=== PATIENT | male | born 1940 | race Caucasian/White ===

== ENCOUNTER 2018-11-25 11:12 | Emergency (ER) | payer MEDICARE ==
--- NOTE | 2018-11-25 11:30 | Emergency Department Record ---
History of Present Illness - General Chief Complaint: Fall Injury Stated Complaint: FALL Time Seen by Provider: 11/25/18 11:23 Source: Patient, Family Mode of Arrival: Wheelchair Limitations: No limitations - History of Present Illness Initial Comments: 78 yo male presents after a fall yesterday. He tripped over a small tree stump in his yard. He landed on his right side. He broke his glasses. No LOC. In the he had a large cyst removed and he reports he has PSYCHOLOGY ASSOCIATE shunts in place. No headache, vision changes, nausea, dizziness, confusion or any other changes in his health. He has a tender area in the right upper chest and right posterior ankle pain. No cough, shortness of breath, abdominal pain or other extremity pain. He is on Plavix. Dr Contreras is his PCP MD Complaint: Fall Onset/Timin -: Days(s) Fall From: Other When Fall Occurred: 24 hours [employer] Fall Witnessed: No Place Fall Occurred: Home Loss of Consciousness: None Prolonged Down Time?: No Symptoms Prior to Fall: None Location: Head, Chest Location - Extremities: Right: Ankle Severity: Moderate Quality: Aching Context: Tripped/slipped Associated Symptoms: Denies - [place] Coma Scale Eye Response: (4) Open spontaneously Motor Response: (6) Obeys commands Verbal Response: (5) Oriented [place] Total: 15 - Related Data Home Medications Medication Instructions Recorded Confirmed Last Taken Clopidogrel Bisulfate [Clopidogrel] 75 mg PO DAILY 11/25/18 11/25/18 Unknown Isosorbide Mononitrate [Imdur] 60 mg PO DAILY 11/25/18 11/25/18 Unknown Allergies Allergy/AdvReac Type Severity Reaction Status Date / Time No Known Drug Allergies Allergy Verified 01/12/16 23:24 Travel Screening - Travel/Exposure Within Last 30 Days Have you traveled within the last 30 days?: No Review of Systems Constitutional: Denies: Chills, Fever, Malaise, Weakness Eyes: Denies: Eye discharge, Eye pain, Photophobia, Vision change ENT: Denies: Congestion, Throat pain Respiratory: Denies: Cough Cardiovascular: Denies: Chest pain, Palpitations, Syncope Endocrine: Denies: Fatigue Gastrointestinal: Denies: Abdominal pain, Diarrhea, Nausea, Vomiting Genitourinary: Denies: Dysuria, Frequency, Hematuria Musculoskeletal: Reports: Arthralgia. Denies: Back pain Skin: Denies: Bruising, Change in color, Rash Neurological: Denies: Abnormal gait, Confusion, Headache, Numbness, Paresthesias, Tremors, Vertigo, Weakness Psychiatric: Denies: Anxiety Hematological/Lymphatic: Denies: Easy bleeding, Easy bruising Past Medical History - SOCIAL HISTORY Smoking Status: Never smoker - RESPIRATORY Hx Respiratory Disorders: No - CARDIOVASCULAR Hx Cardio Disorders: Yes Hx Chest Pain: Yes Hx Hypertension: Yes (high cholesterol) Comment:: occasional angina has nitrostat - NEURO Hx Neuro Disorders: Yes Hx Brain Tumor: Yes (1983) - GI Hx GI Disorders: No Comment:: difficulty passing stool - Hx Genitourinary Disorders: No - ENDOCRINE Hx Endocrine Disorders: Yes Hx Diabetes: Yes (DM2) - MUSCULOSKELETAL Hx Musculoskeletal Disorders: No - PSYCH Hx Psych Problems: No - HEMATOLOGY/ONCOLOGY Hx Hematology/Oncology Disorders: No Family Medical History Any Significant Family History?: Yes Family Hx Comment (NOT TO BE USED IN PLACE OF ITEMS BELOW): father had brain aneurysm Hx Cancer: Brother/Sister Hx Depression: Children *Depression Comment: son Hx Diabetes: Brother/Sister Hx HTN: Father Physical Exam - General General Appearance: Alert, Oriented x3, Cooperative, No acute distress Limitations: No limitations - Head Head exam: negative: Atraumatic, Normal inspection Head exam detail: Abrasion Image of Face/Head: 1 - small bruised contusion. non tender. - Eye Eye exam: Normal appearance, PERRL, EOMI, Periorbital swelling. negative: Conjunctival injection, Nystagmus, Periorbital tenderness, Scleral icterus Pupils: Normal accommodation. negative: Irregular, Unequal - ENT ENT exam: Normal exam, Mucous membranes moist Ear exam: Normal external inspection Nasal Exam: Normal inspection Mouth exam: Normal external inspection Teeth exam: Normal inspection Throat exam: Normal inspection - Neck Neck exam: Normal inspection, Full ROM. negative: Tenderness - Respiratory Respiratory exam: Normal lung sounds bilaterally, Chest wall tenderness (tender right upper chest wall, normal inspection, clear lung). negative: Respiratory distress - Cardiovascular Cardiovascular Exam: Regular rate, Normal rhythm, Normal heart sounds - GI/Abdominal GI/Abdominal exam: Soft, Normal bowel sounds. negative: Tenderness - Rectal Rectal exam: Deferred - exam: Deferred - Extremities Extremities exam: Normal inspection, Full ROM, Tenderness. negative: Calf tende rness, Joint swelling, Normal capillary refill, Pedal edema Image of Full Body: 1 - tender posterior, achilles is inact, foot flexion is intact, normal inspection, no swelling or bruising Image of Feet: 1 - tenderness and bruising, the achilles feels intact and firm without deformity but there is bruising and mild swelling to the heal - Back Back exam: Reports: Normal inspection. Denies: CVA tenderness (R), CVA tenderness (L), Muscle spasm, Paraspinal tenderness, Tenderness, Vertebral tenderness - Neurological Neurological exam: Alert, Oriented X3. negative: Altered, Motor sensory deficit - Psychiatric Psychiatric exam: Normal affect, Normal mood. negative: Agitated, Anxious - Skin Skin exam: Abrasion, Dry, Intact, Warm Course Vital Signs 11/25/18 11:17 Temperature 97.5 F L Pulse Rate 99 H Respiratory 20 Rate Blood Pressure 159/97 Pulse Ox 96 - Reevaluation(s) Reevaluation #1: 11/25/18 12:45 The HCT was negative for any acute process. Chronic surgical changes with shunts unchanged. 11/25/18 12:51 The Cervical Spine was reviewed. No acute injury. See full reports for signi ficant list of chronic findings 11/25/18 12:56 The Ankle XR was negative for acute injury The CT of the chest was negative for acute injury. There is disruption of the left shunt in the chest. There is no old for comparison making this age indeterminate. The patient has not seen a neurosurgeon is decades. He has no knowledge of the status of the left shunt. He has not had any symptoms and his HCT does not show signs of hydrocephalus. We discussed the symptoms that should prompt an evaluation such as headaches, vision changes, dizziness. There is adenopathy and nodules as well. The patient and family were instructed to see there doctor for interval follow to ensure no progression. He will follow all the studies up with his PCP to review and make necessary follow up study appointments He will be placed in the DonJoy in some foot flexion if tolerated as well as he was given an RX for a walker We discussed the radiology findings. I explained that he will need to protect the ankle and achilles tendon. His tendon in intact with normal function but it is tender. He physically will not be able to fully non weight bear. He will be given a DonJoy and a Walker. He was unable to do crutches at home. He will call his PCP for very close follow up. 11/25/18 13:21 Disposition Disposition: Discharge Clinical Impression: Chest wall contusion, Contusion of head, Right ankle sprain Disposition: Home, Self-Care Condition: (1) Good Instructions: Fall Prevention for Older Adults (ED) Additional Instructions: Call your doctor for the next available follow up appointment Use the supportive boot until you are seen and cleared by your family doctor Use the walker as well to take weight off your right ankle and achilles tendon Review this ER visit and the tests performed with your family doctor Return to the ER for a recheck if worse, any new concerns or questions You will need to have follow up tests of the findings on the Chest CT scan if your doctor does not have records of prior studies of the findings Forms: Patient Portal Access Time of Disposition: 13:24 Quality - Quality Measures Quality Measures: N/A, Blunt Head Trauma (>2yr) - Mylene Coma Scale Eye Response: (4) Open spontaneously Motor Response: (6) Obeys commands Verbal Response: (5) Oriented Mylene Total: 15 - Blunt Head Trauma - Adult Quality Measure: Measure #415: Utilization of CT for Minor Blunt Head Trauma ICD10 Codes Entered: Yes Was CT ordered: Yes Does Patient Have Any of the Following: Ventricular Shunt Mylene Score: [address] for Minor Blunt Head Trauma: Patient Excluded [G9531] Indications For CT: Age 65 Years and Older - Blood Pressure Screening Does Patient Have Any of the Following: No Blood Pressure Classification: Hypertensive Reading Systolic Measurement: 159 Diastolic Measurement: 97 Screening for High Blood Pressure: < Pre-Hypertensive BP, F/U Documented > [G8950] Pre-Hypertensive Follow-up Interventions: Referral to alternative/primary care provider.
--- NOTE | 2018-11-26 19:20 | CT SCAN REPORT ---
EXAM: CT SCAN HEAD WO CONTRAST HISTORY: FALL WITH TRAUMA TO RIGHT SIDE OF BODY ONE DAY AGO. TECHNIQUE: Routine noncontrast CT of the brain. COMPARISON: CT of the brain dated 01/13/2016. FINDINGS: There is re-demonstration of a frontal craniotomy defect centered right of midline with the craniotomy fragment again appearing slightly depressed. This is stable. Bilateral parietal region ventriculoperitoneal shunts are present. The right shunt enters the parietal bone and extends into the right lateral ventricle and across the midline terminating in the left lateral ventricle. The left shunt enters the parietal bone coursing medially with its tip just right of midline. This positioning is stable. No hydrocephalus is demonstrated. Mild generalized atrophy is again suggested. There is re-demonstration of an old lacunar infarct within the anterior aspect of the right thalamus. No new area of abnormally increased or decreased attenuation is noted throughout the brain substance. No abnormal extraaxial fluid collection. No acute skull fracture. No cephalohematoma. There is opacification of multiple bilateral ethmoid air cells, unchanged or slightly more pronounced in the interval consistent with chronic inflammatory change. Minor mucosal thickening is also noted within the left maxillary sinus. The orbits as visualized are unremarkable. IMPRESSION: 1. 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 2. NO CT EVIDENCE OF AN ACUTE INTRACRANIAL ABNORMALITY WITHOUT CHANGE IN APPEARANCE OF THE BRAIN SINCE 01/13/2016. BILATERAL VENTRICULAR SHUNTS REMAIN IN PLACE UNCHANGED. 3. 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 4. 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 5. CHRONIC INFLAMMATORY CHANGES WITHIN MULTIPLE ETHMOID AIR CELLS, STABLE OR SLIGHTLY WORSENED IN THE INTERVAL. JOB NUMBER: [id number] [facility]
--- NOTE | 2018-11-26 19:28 | CT SCAN REPORT ---
EXAM: CT SCAN CERVICAL SPINE WO CONTRAST HISTORY: FALL. TECHNIQUE: Routine noncontrast helical CT examination of the cervical spine is performed in the axial plane without intravenous contrast. Coronal and sagittal reformatted images are generated and reviewed. COMPARISON: Same-day noncontrast CT of the head. Same-day noncontrast CT of the chest. No prior imaging of the cervical spine available for comparison. FINDINGS: There is diffuse osteopenia. There is straightening of the normal cervical lordosis. Minimal anterolisthesis of C4 on C5 is identified measuring 2.6 mm. There is minimal retrolisthesis of C5 on C6 measuring 2 mm. There is dextroconvex curvature involving the mid to lower cervical spine. The vertebral bodies are otherwise normal in alignment and height. No acute fracture is seen, nor is there prevertebral soft tissue swelling. No lytic or blastic bone lesion. Multilevel degenerative disc/degenerative endplate changes are identified, most pronounced at the C5-C6 level, where they are moderate in degree. They are mild elsewhere. Multilevel bilateral facet arthropathy is present, most pronounced on the left at the mid to upper levels, where the changes are moderate to advanced. There is likely borderline to mild central canal stenosis at the C5-C6 level. Multilevel bilateral neural foraminal narrowing is present due to uncovertebral joint and facet joint spurring. This appears most pronounced at the C5-C6 level on the right, where the narrowing is severe. There is evidence of an old nonunion fracture involving the spinous process of C7. No cervical mass nor adenopathy is seen. There is atherosclerotic calcification of the carotid bifurcations, moderate to severe on the right and mild to moderate on the left. Opacification of multiple bilateral ethmoid air cells consistent with chronic inflammatory change. The lung apices are clear. Ventriculoperitoneal shunt tubing is noted within the neck, both on the right and the left. Evaluation of tubing integrity is limited due to tortuosity. IMPRESSION: 1. NO CONVINCING ACUTE FRACTURE, SUSPICIOUS SUBLUXATION, OR PREVERTEBRAL SOFT TISSUE SWELLING. 2. 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 3. MULTILEVEL DEGENERATIVE CHANGES ASSOCIATED WITH DEXTROCONVEX SCOLIOSIS, MINOR ANTEROLISTHESIS OF C4 ON C5, AND MINOR RETROLISTHESIS OF C5 ON C6. 4. BORDERLINE TO MILD CENTRAL CANAL STENOSIS AT THE C5-C6 LEVEL. MULTILEVEL BILATERAL NEURAL FORAMINAL NARROWING DUE TO UNCOVERTEBRAL JOINT AND FACET JOINT SPURRING. 5. ATHEROSCLEROTIC CALCIFICATION OF THE CAROTID BIFURCATIONS, MODERATE TO SEVERE ON THE RIGHT AND MILD TO MODERATE ON THE LEFT. JOB [facility]BER: [id number] [facility]
--- NOTE | 2018-11-26 19:40 | CT SCAN REPORT ---
EXAM: CT SCAN CHEST WO CONTRAST HISTORY: RIGHT UPPER CHEST PAIN ONE DAY POST FALL. TECHNIQUE: Routine noncontrast CT of the chest. COMPARISON: Two-view chest radiographic examination dated 04/08/2016. Same-day noncontrast CT of the cervical spine. FINDINGS: The heart is not enlarged. There is diffuse atherosclerotic calcification of the coronary arteries. A right coronary artery stent is possible. The thoracic aorta is diffusely atherosclerotic without aneurysmal dilatation. There is mild adenopathy in the azygoesophageal recess measuring 1.6 cm in short axis diameter. There is also likely mild adenopathy in the superior right hilum measuring 1.6 cm in short axis diameter. There is a mildly enlarged lymph node in the anterior left hilar region adjacent to the left margin of the pulmonary outflow tract measuring 1.6 cm in diameter. There is also a mildly enlarged lymph node in the left infrahilar region measuring 1.6 cm in short axis diameter. The etiology of this adenopathy is indeterminate, though a reactive/inflammatory process is favored over neoplasm. Mild reticular opacity prominence is noted peripherally in each lung base, likely relating to chronic interstitial change. No lung consolidation is seen. Biapical pleural and parenchymal scarring is present. Small calcified nodules are scattered throughout each lung consistent with healed granulomatous disease. Several noncalcified nodules are suspected within the lungs as well. One in the subpleural lateral right mid lung as seen on series 2, image #77 measures 3 mm and one in the subpleural posterolateral left lung base as seen on image #111 measures 3 mm. These are nonspecific but likely postinflammatory. If there is a smoking history or history of malignancy, follow-up CT chest in 12 months is recommended. A small hiatal hernia is present. The adrenal glands are not enlarged. Low-density structures are scattered within the upper poles of each kidney with the largest on the right measuring 3.2 cm and the largest on the left measuring 3.2 cm. These are nonspecific but likely cysts. The gallbladder is surgically absent. No biliary ductal dilatation. Ventriculoperitoneal shunt tubing is noted bilaterally within the neck base anteriorly. This extends into the anterior chest wall. That on the left is disrupted for a short segment. That on the right appears intact and joins the left-sided distal fragment. A single shunt tube extends into the peritoneal cavity at the upper level, right of midline. No lytic or blastic bone lesion. There are degenerative changes scattered throughout the visualized spine. No definite acute osseous fracture. There is diverticulosis of the visualized colon without evidence of diverticulitis. IMPRESSION: 1. NO DEFINITE CT EVIDENCE OF AN ACUTE INTRATHORACIC PROCESS. 2. DIFFUSE ATHEROSCLEROTIC CALCIFICATION OF THE CORONARY ARTERIES WITH PROBABLE RIGHT CORONARY ARTERY STENT IN PLACE. 3. MILDLY ENLARGED AZYGOESOPHAGEAL RECESS AND HILAR LYMPH NODES. THESE ARE NONSPECIFIC, THOUGH LIKELY REACTIVE/INFLAMMATORY RATHER THAN NEOPLASTIC. COMPARISON TO PRIOR EXAMINATIONS, IF ANY EXIST, IS RECOMMENDED. IF NONE EXIST, SHORT-TERM FOLLOW-UP CT EXAMINATION IN 3-6 MONTHS IS RECOMMENDED. 4. CHRONIC INTERSTITIAL CHANGES/FIBROSIS, MILD IN DEGREE WITHIN THE LUNG BASES. HEALED GRANULOMATOUS DISEASE SCATTERED WITHIN EACH LUNG. THERE ARE A FEW NONCALCIFIED LUNG NODULES WELL. IF THERE IS A HISTORY OF MALIGNANCY OR HISTORY OF SMOKING, FOLLOW-UP CT CHEST IN 12 MONTHS IS RECOMMENDED. 5. PLEASE SEE ABOVE DISCUSSION REGARDING SHUNT TUBING. 6. NO DEFINITE ACUTE OSSEOUS FRACTURE. 7. BILATERAL RENAL CYSTS SUSPECTED. 8. SMALL HIATAL HERNIA. JOB NUMBER: [id number] [facility]
--- NOTE | 2018-11-26 19:54 | RADIOLOGY REPORT ---
EXAM: ANKLE RIGHT 3 VIEWS HISTORY: POSTERIOR RIGHT ANKLE PAIN POST FALL. TECHNIQUE: Three views of the right ankle. COMPARISON: None. ENCOUNTER: Initial. FINDINGS: There is borderline osteopenia. No acute fracture nor dislocation. No lytic or blastic bone lesion. There are mild degenerative changes within the tibiotalar joint and hindfoot. There is a small plantar calcaneal spur. There are chronic-appearing calcific densities at the level of the distal Achilles tendon, which appears thickening consistent with calcific tendinosis. Mild arterial calcifications are noted about the ankle. IMPRESSION: 1. NO ACUTE BONE NOR JOINT ABNORMALITY IDENTIFIED. MILD DEGENERATIVE CHANGES. 2. SMALL PLANTAR CALCANEAL SPUR. 3. CHRONIC-APPEARING CALCIFICATIONS WITHIN THE DISTAL ACHILLES TENDON, WHICH APPEARS THICKENING CONSISTENT WITH CALCIFIC TENDINOSIS. J[facility]BER: [id number] [facility]
== END 2018-11-25 13:39 | disposition home or self-care (01) ==
LOC: ER 11:12
DX: S93.401A Sprain of unspecified ligament of right ankle, initial encounter (principal); S00.83XA Contusion of other part of head, initial encounter; S20.211A Contusion of right front wall of thorax, initial encounter; W18.09XA Striking against other object with subsequent fall, initial encounter; Y92.007 Garden or yard of unspecified non-institutional (private) residence as the place of occurrence of the external cause; E11.9 Type 2 diabetes mellitus without complications; I10 Essential (primary) hypertension
CPT/HCPCS: 70450; 71250; 72125; 99283; 99284

== ENCOUNTER 2019-04-06 18:49 | Emergency (ER) | payer MEDICARE ==
--- NOTE | 2019-04-06 19:31 | Emergency Department Record ---
History of Present Illness - General Chief complaint: ENT Stated complaint: RINGING IN EARS Time Seen by Provider: 04/06/19 19:30 Source: Patient Mode of Arrival: Ambulatory Limitations: No limitations - History of Present Illness Initial comments: pt c/oringing in his r ear since 1700. he had this once before and peroxide in the ear helped. he takes asa 81mg a day. MD complaint: Other Onset/Timin -: Hour(s) Location: R ear Severity: Moderate Quality: Other Consistency: Constant Improves with: None Worsens with: None Context-Epistaxis: Aspirin use Associated Symptoms: Tinnitus - Related Data Allergies Allergy/AdvReac Type Severity Reaction Status Date / Time No Known Drug Allergies Allergy Verified 04/06/19 19:02 Travel Screening - Travel/Exposure Within Last 30 Days Have you traveled within the last 30 days?: No - Travel/Exposure Within Last Year Have you traveled outside the [place] in the last year?: No - Additonal Travel Details Have you been exposed to anyone with a communicable illness?: No - Travel Symptoms Symptom Screening: None Review of Systems Reviewed: No additional complaints except as noted below Constitutional: Reports: As per HPI. Denies: Chills, Fever, Malaise, Night sweats, Weakness, Weight change Eyes: Reports: As per HPI. Denies: Eye discharge, Eye pain, Photophobia, Vision change ENT: Reports: As per HPI, Hearing loss. Denies: Congestion, Dental pain, Ear pain, Epistaxis, Throat pain Respiratory: Reports: As per HPI. Denies: Cough, Dyspnea, Hemoptysis, Stridor, Wheezes Cardiovascular: Reports: As per HPI. Denies: Arrhythmia, Chest pain, Dyspnea on exertion, Edema, Murmurs, Orthopnea, Palpitations, Paroxysmal nocturnal dyspnea, Rheumatic Fever, Syncope Endocrine: Reports: As per HPI. Denies: Fatigue, Heat or cold intolerance, Polydipsia, Polyuria Gastrointestinal: Reports: As per HPI. Denies: Abdominal pain, Constipation, Diarrhea, Hematemesis, Hematochezia, Melena, Nausea, Vomiting Genitourinary: Reports: As per HPI. Denies: Dysuria, Frequency, Hematuria, Incontinence, Retention, Testicular pain, Testicular mass, Urgency Musculoskeletal: Reports: As per HPI. Denies: Arthralgia, Back pain, Gout, Joint swelling, Myalgia, Neck pain Skin: Reports: As per HPI. Denies: Bruising, Change in color, Change in hair/nails, Lesions, Pruritus, Rash Neurological: Reports: As per HPI. Denies: Abnormal gait, Confusion, Headache, Numbness, Paresthesias, Seizure, Tingling, Tremors, Vertigo, Weakness Psychiatric: Reports: As per HPI. Denies: Anxiety, Auditory hallucinations, Depression, Homicidal thoughts, Suicidal thoughts, Visual hallucinations Hematological/Lymphatic: Reports: As per HPI. Denies: Anemia, Blood Clots, Easy bleeding, Easy bruising, Swollen glands Past Medical History - SOCIAL HISTORY Smoking Status: Never smoker Alcohol Use: None Drug Use: None - RESPIRATORY Hx Respiratory Disorders: No - CARDIOVASCULAR Hx Cardio Disorders: Yes Hx Chest Pain: Yes Hx Hypertension: Yes (high cholesterol) Comment:: occasional angina has nitrostat - NEURO Hx Neuro Disorders: Yes Hx Brain Tumor: Yes (1983) - GI Hx GI Disorders: No Comment:: difficulty passing stool - Hx Genitourinary Disorders: No - ENDOCRINE Hx Endocrine Disorders: Yes Hx Diabetes: Yes (DM2) - MUSCULOSKELETAL Hx Musculoskeletal Disorders: No - PSYCH Hx Psych Problems: No - HEMATOLOGY/ONCOLOGY Hx Hematology/Oncology Disorders: No Family Medical History Any Significant Family History?: Yes Family Hx Comment (NOT TO BE USED IN PLACE OF ITEMS BELOW): father had brain aneurysm Hx Cancer: Brother/Sister Hx Depression: Children *Depression Comment: son Hx Diabetes: Brother/Sister Hx HTN: Father Physical Exam - General General Appearance: Alert, Oriented x3, Cooperative, No acute distress - Head Head exam: Normal inspection - Eye Eye exam: Normal appearance, PERRL, EOMI Pupils: Normal accommodation - ENT ENT exam: Normal exam, Mucous membranes moist, Normal external ear exam, Normal orophraynx, Other (occluded w cerumen) Ear exam: Normal external inspection. negative: External canal tenderness Nasal Exam: Normal inspection. negative: Discharge, Sinus tenderness Mouth exam: Normal external inspection, Tongue normal Teeth exam: Normal inspection. negative: Dental caries Throat exam: Normal inspection. negative: Tonsillar erythema, Tonsillar exudate - Neck Neck exam: Normal inspection, Full ROM. negative: Tenderness - Respiratory Respiratory exam: Normal lung sounds bilaterally. negative: Respiratory d istress - Cardiovascular Cardiovascular Exam: Regular rate, Normal rhythm, Normal heart sounds - GI/Abdominal GI/Abdominal exam: Soft, Normal bowel sounds. negative: Tenderness - Rectal Rectal exam: Deferred - exam: Deferred - Extremities Extremities exam: Normal inspection, Full ROM, Normal capillary refill. negative: Tenderness - Back Back exam: Reports: Normal inspection, Full ROM. Denies: Muscle spasm, Rash noted, Tenderness - Neurological Neurological exam: Alert, CN II-XII intact, Normal gait, Oriented X3 - Psychiatric Psychiatric exam: Normal affect, Normal mood - Skin Skin exam: Dry, Intact, Normal color, Warm Course Vital Signs 04/06/19 19:07 Temperature 97.9 F Pulse Rate [ 95 H Pulse Ox Probe] Respiratory 24 Rate Blood Pressure 175/97 [Left Arm] Pulse Ox 95 Disposition Disposition: Discharge Clinical Impression: Tinnitus, right ear Disposition: Home, Self-Care Condition: (1) Good Instructions: Tinnitus (ED) Additional Instructions: follow up with family doctor. no caffeine. return sooner if worse Forms: Patient Portal Access Quality - Quality Measures Quality Measures: N/A - Blood Pressure Screening Does Patient Have Any of the Following: Active Dx of HTN Blood Pressure Classification: Hypertensive Reading Systolic Measurement: 175 Diastolic Measurement: 97 Screening for High Blood Pressure: Patient Exclusion, Hx of HTN [G9744]
== END 2019-04-06 20:17 | disposition home or self-care (01) ==
LOC: ER 18:49
DX: H93.11 Tinnitus, right ear (principal)
CPT/HCPCS: 99282

== ENCOUNTER 2019-07-04 14:46 | Emergency (ER) | payer MEDICARE ==
--- NOTE | 2019-07-04 15:10 | Emergency Department Record ---
History of Present Illness - General Chief Complaint: Dizziness Stated Complaint: LOSS OF BALANCE Time Seen by Provider: 07/04/19 15:00 Source: Patient Mode of Arrival: Wheelchair Limitations: No limitations - History of Present Illness Initial Comments: The patient is here due to feeling off balance and unsteady on his feet since yesterday evening. He denies any CP, FOLEY, neck pain or new arm or leg numbness or weakness. The patient has had similar issues in the past but this is worse. 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 The patient does have a hx of chronic L hand weakness but that is no different. MD Complaint: Dizziness Onset/Timin -: Days(s) Timing: Gradual onset Description: Difficulty walking, Off-balance History of Same: No History of Trauma: No Improves With: Nothing Worsens With: Nothing Associated Symptoms: Denies other symptoms - [place] Coma Scale Eye Response: (4) Open spontaneously Motor Response: (6) Obeys commands Verbal Response: (5) Oriented [place] Total: 15 - Related Data Allergies Allergy/AdvReac Type Severity Reaction Status Date / Time amoxicillin Allergy rash Verified 07/04/19 14:59 Travel Screening - Travel/Exposure Within Last 30 Days Have you traveled within the last 30 days?: No Review of Systems Constitutional: Denies: Chills, Fever Eyes: Denies: Eye discharge ENT: Denies: Congestion Respiratory: Denies: Cough, Dyspnea Cardiovascular: Denies: Arrhythmia Endocrine: Denies: Fatigue Gastrointestinal: Denies: Nausea Genitourinary: Denies: Dysuria Musculoskeletal: Denies: Arthralgia Neurological: Reports: Abnormal gait. Denies: Confusion Past Medical History - SOCIAL HISTORY Smoking Status: Never smoker Alcohol Use: None Drug Use: None - RESPIRATORY Hx Respiratory Disorders: No - CARDIOVASCULAR Hx Cardio Disorders: Yes Hx Cardiac Cath: Yes Hx Chest Pain: Yes Hx Hypertension: Yes (high cholesterol) - NEURO Hx Neuro Disorders: Yes Hx Brain Tumor: Yes (1984) - GI Hx GI Disorders: No - Hx Genitourinary Disorders: No - ENDOCRINE Hx Endocrine Disorders: Yes Hx Diabetes: Yes (DM2) - MUSCULOSKELETAL Hx Musculoskeletal Disorders: No - PSYCH Hx Psych Problems: No - HEMATOLOGY/ONCOLOGY Hx Hematology/Oncology Disorders: No Family Medical History Any Significant Family History?: Yes Family Hx Comment (NOT TO BE USED IN PLACE OF ITEMS BELOW): father had brain aneurysm Hx Cancer: Brother/Sister Hx Depression: Children *Depression Comment: son Hx Diabetes: Brother/Sister Hx HTN: Father Physical Exam - General General Appearance: Alert, Oriented x3, Cooperative, No acute distress - Head Head exam: Atraumatic, Normocephalic, Normal inspection - Eye Eye exam: Normal appearance, PERRL, EOMI - ENT ENT exam: negative: TM's normal bilaterally (The R TM is normal but the L TM is partially obstructed by cerumen.) Throat exam: Normal inspection. negative: Tonsillar erythema, Tonsillar exudate - Neck Neck exam: Normal inspection, Full ROM. negative: Tenderness - Respiratory Respiratory exam: Normal lung sounds bilaterally. negative: Respiratory distress - Cardiovascular Cardiovascular Exam: Regular rate, Normal rhythm, Normal heart sounds - GI/Abdominal GI/Abdominal exam: Soft, Normal bowel sounds. negative: Tenderness - Extremities Extremities exam: Normal inspection, Full ROM. negative: Tenderness - Neurological Neurological exam: Abnormal gait, Alert, Motor sensory deficit (There is mild L hand weakness but that is chronic.), Oriented X3, Other (There is a positive [place]omberg.). negative: Altered, Normal gait - Psychiatric Psychiatric exam: negative: Anxious Course Vital Signs 07/04/19 14:55 Temperature 98.1 F Pulse Rate 92 H Respiratory 16 Rate Blood Pressure 165/110 Pulse Ox 95 - Reevaluation(s) Reevaluation #1: The patient has no new issues or problems but is still feeling unsteady on his feet. 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 Due to the hx of brain surgery and shunts I do feel he should be at [facility] for further evaluation. I then did discuss the case with DR. Santana on the Stroke team and he does want the patient to be transferred to the ER their. I then did discuss the case with Dr. Elliott in the ER and he does accept the patient for transfer. 07/04/19 16:13 Medical Decision Making - Data Complexity MDM Data: Labs Ordered and/or Reviewed, X-Ray Ordered and/or Reviewed, EKG Ordered and/or Reviewed - Lab Data Result diagrams: 07/04/19 15:20 07/04/19 15:20 - EKG Data -: EKG Interpreted by Me (NSR at 85, RBBB with LAFB.) - Radiology Data Radiology results: Report reviewed (Head CT: Neg for acute changes. Multiple old chronic changes.) Disposition Disposition: Transfer Clinical Impression: Ataxia Disposition: Acute Care Hospital Transfer Transfer To: [facility] ED Reason For Transfer: Stroke Team Accepting Physician: Lexi Time Discussed w/Accepting Physician: 16:15 Condition: (2) Stable Forms: Patient Portal Access Time of Disposition: 16:15 Quality - Quality Measures Quality Measures: N/A - Blood Pressure Screening View Details: Yes Does Patient Have Any of the Following: Active Dx of HTN Blood Pressure Classification: Hypertensive Reading Systolic Measurement: 165 Diastolic Measurement: 110 Screening for High Blood Pressure: Patient Exclusion, Hx of HTN [G9744]
[2019-07-04 15:27] LABS: BASO % 0.2 % (0-6); EOS % 2.5 % (0-6); GRAN % 60.3 % (47-80); HEMOGLOBIN 15.4 gm/dl (14.0-18.0); LYMPH % 27.2 % (16-45); MEAN CELL VOLUME 93.8 fl (81-97); MEAN CORPUSCULAR HEMOGLOBIN 32.1 pg (27-33); MEAN CORPUSCULAR HGB CONC 34.2 g/dl (32-36); MEAN PLATELET VOLUME 9.4 fl (7.4-10.4); MONO % 9.8 % (0-9); PLATELET COUNT 355 K/uL (130-400); RED CELL DISTRIBUTION WIDTH 13.8 % (11.5-14.5); WHITE BLOOD COUNT W/O DIFF 9.9 K/uL (4.2-12.2)
[2019-07-04 15:45] LABS: PARTIAL THROMBOPLASTIN TIME 24.7 SECONDS (24.5-39.1); PROTHROMBIN TIME (PATIENT) 10.1 SECONDS (9.5-12.1)
[2019-07-04 15:47] LABS: BLOOD UREA NITROGEN 15 mg/dL (8-23); CREATININE 0.9 mg/dL (0.7-1.2); EST GLOMERULAR FILTRATION RATE > 60 mL/min
[2019-07-04 15:48] LABS: TOTAL PROTEIN 6.5 g/dL (6.6-8.7)
[2019-07-04 15:50] LABS: GLUCOSE,RANDOM 116 mg/dL (74-109)
--- NOTE | 2019-07-04 15:50 | CT SCAN REPORT ---
EXAMINATION: CT Head without IV Contrast EXAM DATE: 07/04/2019 3:44 PM TECHNIQUE: Standard protocol CT images of the head were obtained without intravenous contrast. Alvares l and sagittal reconstructed images were created. INDICATION: balance issues. COMPARISON: 11/25/2018 HAND DOMINANCE: Unknown. ENCOUNTER: Not applicable FINDINGS: Globes and orbits appear unremarkable. Mild mucosal thickening paranasal sinuses. Opacification of a few left mastoid air cells. Intermediate density left external auditory canal likely represents cerum en. Bilateral ventriculostomy shunt catheters appears similar compared to prior exam. Ventricles are not enlarged and are similar in size compared to prior exam. No intracranial hemorrhage evident. Frontal craniotomy defect again visualized. 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 Additional minor degree of hypodensity in the supratentorial brain suggestive of chronic s mall vessel ischemic changes. No mass, mass effect, or midline shift evident. IMPRESSION: 1. Postsurgical changes appear similar compared to prior exam. Bilateral ventriculostomy shunt cath eters appears similar compared to prior exam. Ventricles are not enlarged and are similar in size com pared to prior exam. 2. 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 Additional minor degre e of hypodensity in the supratentorial brain suggestive of chronic small vessel ischemic changes. Dictated by: Jae Harrington DO on 07/04/2019 3:44 PM. .
[2019-07-04 15:53] LABS: ALB/GLOB RATIO 1.7 (1.1-1.8); ALBUMIN 4.1 g/dL (4.0-5.0); ALKALINE PHOSPHATASE 89 U/L (40-129); ALT/SGPT 22 U/L (<41); AST/SGOT 19 U/L (10.0-50.0)
[2019-07-04] MEDS: ASPIRIN 325 MG TABLET PO ONE (16:14)
== END 2019-07-04 18:04 | disposition short-term general hospital (02) ==
LOC: ER 14:46
DX: R27.8 Other lack of coordination (principal); R42 Dizziness and giddiness; H61.22 Impacted cerumen, left ear; R29.898 Other symptoms and signs involving the musculoskeletal system; I10 Essential (primary) hypertension; E11.9 Type 2 diabetes mellitus without complications; Z79.4 Long term (current) use of insulin
CPT/HCPCS: 70450; 80053; 84484; 85025; 85610; 85730; 93005; 93010; 99285